=== PATIENT | male | born 1980 | race Caucasian/White ===

== ENCOUNTER → 2021-02-27 14:09 | Outpatient (CLI) | payer OTHER, SELFPAY ==
--- NOTE | ~2021-02-27 | XR_ITS ---
EXAMINATION: XR knee LT 3V DATE: 02/27/2021 14:31 INDICATION: Left knee injury. TECHNIQUE: 3 views of left knee were obtained. COMPARISON: None. FINDINGS: Bone alignment is normal. No fracture. Joint spaces are normal. There is a large knee joint effusion. IMPRESSION: 1. Large knee joint effusion. Reviewed, dictated and finalized at location B. INE CUSTOMER REPRESENTATIVE
== END ==
PROVIDERS: PCP Family Medicine; Visit Provider Family Medicine
DX: S89.92XA Unspecified injury of left lower leg, initial encounter (principal); M25.462 Effusion, left knee
CPT/HCPCS: 73562

== ENCOUNTER → 2021-05-17 06:55 | Outpatient (CLI) | payer OTHER, SELFPAY ==
--- NOTE | ~2021-05-17 | MR_ITS ---
EXAMINATION: MR knee LT wo con DATE: 05/17/2021 07:40 INDICATION: Left knee pain TECHNIQUE: Magnetic resonance imaging (MRI) of the left knee was performed without intravenous contra st. Sequences included coronal PD-weighted FSE, coronal PD-weighted FS FSE, sagittal T2-weighted FSE , sagittal PD-weighted FS FSE and axial PD weighted fat saturated FSE. COMPARISON: None. FINDINGS: Medial compartment: Medial meniscus is normal. Articular cartilage is normal. Lateral compartment: Lateral meniscus is normal. Articular cartilage is normal. Patellofemoral compartment: Deep chondral fissuring at the medial trochlea. Remaining cartilage in the patellofemoral compartment is normal. Ligaments and tendons: Anterior and posterior cruciate ligaments are normal. Mild thickening of the proximal medial collater al ligament without significant surrounding edema to suggest acute injury consistent with mild scarri ng related to chronic sprain. The fibular collateral ligament complex is normal. The extensor mechani sm is normal. The visualized medial and lateral hamstring tendons as well as the iliotibial band are normal. Fluid: Small left knee joint effusion. No loose osteochondral bodies identified. 13 x 8 x 5 mm ganglion cyst at the posterolateral aspect of the knee situated between the anterolateral margin of the lateral he ad of the gastrocnemius and the deep margin of the biceps femoris myotendinous junctions. Osseous/other: Normal marrow signal. No fracture or pathologic marrow replacing process. IMPRESSION: 1. 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 2. Mild scarring consistent with chronic sprain of the proximal medial collateral ligament. 3. Small left knee joint effusion. Reviewed, dictated and finalized at location A. TRAFFIC CONTROL SUPERVISOR IMPRESSION: 1. 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 2. Mild scarring consistent with chronic sprain of the proximal medial collater al ligament. 3. Small left knee joint effusion.
== END ==
PROVIDERS: PCP Family Medicine; Visit Provider Orthopaedic Surgery
DX: M25.462 Effusion, left knee (principal)
CPT/HCPCS: 73721

== ENCOUNTER 2024-02-18 08:12 | Outpatient (CLI) | payer OTHER, SELFPAY | END 2024-02-23 15:11 | disposition home or self-care (01) | PROVIDERS: PCP Nurse Practitioner Family; Visit Provider Nurse Practitioner Family | DX: G47.10 Hypersomnia, unspecified (principal); R06.83 Snoring; I10 Essential (primary) hypertension | CPT/HCPCS: 95800 ==

== ENCOUNTER 2024-04-01 15:33 | Outpatient (CLI) | payer OTHER, SELFPAY ==
--- NOTE | 2024-04-01 16:00 | ECHO_ITS ---
Patient Info Name: Gal Montoya Age: 44 years : 1980 Gender: Male Ht: 67 in Wt: 205 lbs BSA: 2.13 m2 HR: 75 bpm BP: 145 / 80 mmHg Heart Rhythm: Sinus Rhythm Technical Quality: Excellent Exam Date: 04/01/2024 3:45 PM Exam Location: Echo Lab Patient Status: Outpatient Admit Date: 04/01/2024 Staff Ordering Physician: Carlie Giordano NP Fighting Vehicle Infantryman: Liliana Lomeli RDCS Attending Provider: Carlie Giordano NP Exam Type: CA echo doppler color flow Study Info Complete two-dimensional, color flow and Doppler transthoracic echocardiogram is performed. Summary 1. Complete two-dimensional, color flow and Doppler transthoracic echocardiogram is performed. 2. Normal LV and RV size and function. LV EF 60%. Trace MR, Trace TR. Left Ventricle Left ventricular chamber dimension is normal. Left ventricular systolic function is normal, estimated at Empty. Left ventricular septal wall motion is normal. The left ventricular diastolic function is normal. Right Ventricle Right ventricular chamber dimension is normal. Aortic Valve The aortic valve is trileaflet. There is no aortic valve sclerosis. There is no aortic valve stenosis. There is no aortic valve regurgitation. Pulmonic Valve The pulmonic valve is normal. There is no pulmonic valve stenosis. There is no pulmonic regurgitation. Mitral Valve The mitral valve has normal leaflets. There is no mitral valve stenosis. There is trace mitral valve regurgitation. Tricuspid Valve The tricuspid valve leaflets are normal. There is no significant tricuspid valve stenosis. There is trace tricuspid valve regurgitation. No pulmonary hypertension, estimated pulmonary arterial systolic pressure is Empty. Pericardium/Pleural The pericardium appears normal. Aorta The aortic root size at the sinus of Valsalva is normal. Left Ventricular Outflow Tract Name Value Normal LVOT 2D LVOT Diameter 2.4 cm LVOT Doppler LVOT Peak Gradient 3 mmHg LVOT Mean Gradient 1 mmHg LVOT VTI 18 cm LVOT VTI/AV VTI Ratio 0.8 LVOT Stroke Volume 80 ml LVOT CO 5.0 l/min LVOT CI 2.4 l/min/m2 Pulmonic Valve Name Value Normal PV Doppler PV Peak Gradient 6 mmHg Mitral Valve Name Value Normal MV Doppler MV Peak Gradient 2 mmHg MV Mean Gradient 1 mmHg MV Decel [place] 358 cm/s2 MV PHT 61 ms MV Area (PHT) 3.6 cm2 4.0-5.0 MV Area (Cont Eq VTI) 4.1 cm2 MV Diastolic Function MV E Peak Velocity 75 cm/s MV A Peak Velocity 60 cm/s MV E/A 1.3 MV Decel Time 211 ms MV Annular TDI MV E/e' (Septal) 12.0 <=8.0 MV E/e' (Lateral) 9.4 <=8.0 MV E/e' (Average) 10.7 Tricuspid Valve Name Value Normal TV Regurgitation Doppler TR Peak Velocity 253 cm/s TR Peak Gradient 26 mmHg Aortic Valve Name Value Normal AV Doppler AV Peak Velocity 102 cm/s AV Peak Gradient 4 mmHg AV Mean Gradient 2 mmHg AV VTI 21 cm AV Area (Cont Eq VTI) 3.8 cm2 >=3.0 AV Area (Cont Eq Rehan) 3.8 cm2 AV Regurgitation 2D LVOT Area 4.5 cm2 Ventricles Name Value Normal LV Dimensions 2D/MM IVS Diastolic Thickness (2D) 0.7 cm 0.6-1.0 LVID Diastole (2D) 5.4 cm 4.2-5.8 LVIW Diastolic Thickness (2D) 0.7 cm 0.6-1.0 LVID Systole (2D) 3.8 cm 2.5-4.0 LVOT Diameter 2.4 cm LV Mass (2D Cubed) 131.94 g 88.00-224.00 LV Mass Index (2D Cubed) 62 g/m2 49-115 Relative Wall Thickness (2D) 0.25 LV Fractional Shortening/Ejection Fraction 2D/MM LV Fractional Shortening (2D) 30 % 25-43 LV EF (2D Teicholz) 57 % 52-72 LV Diastolic Volume (4C MOD) 151 ml LV EF (4C MOD) 57 % LV EF (BP MOD) 60 % 52-72 LV Diastolic Length (4C) 8.8 cm LV Systolic Length (4C) 7.1 cm LV Stroke Volume (4C MOD) 86 ml Atria Name Value Normal LA Dimensions LA Volume (4C A-L) 47 ml RA Dimensions RA Area (4C) 12.9 cm2 <=18.0 Report Signatures
== END 2024-04-01 15:34 | disposition home or self-care (01) ==
PROVIDERS: PCP Nurse Practitioner Family; Visit Provider Nurse Practitioner Family
DX: G47.31 Primary central sleep apnea (principal)
CPT/HCPCS: 93306

== ENCOUNTER 2025-01-25 06:57 | Outpatient (CLI) | payer OTHER, SELFPAY ==
--- NOTE | ~2025-01-25 | US_ITS ---
Limited ultrasound left upper quadrant Clinical History: R19.02 - Left upper quadrant abdominal swelling, mass and... Comparison: None Technique: Limited left upper quadrant sonography Findings/impression: 1. Targeted sonography left upper quadrant area of patient complaint and swelling demonstrates no fluid collection, mass, or other acute abnormality. Reviewed, dictated and finalized at location R.
== END 2025-01-25 06:58 | disposition home or self-care (01) ==
PROVIDERS: PCP Nurse Practitioner Family; Visit Provider Nurse Practitioner Family
DX: R19.02 Left upper quadrant abdominal swelling, mass and lump (principal)
CPT/HCPCS: 76705